=== PATIENT | female | born 1960 | race Caucasian/White ===

== ENCOUNTER → 2017-04-26 | Outpatient (CLI) | payer MEDICAID ==
[~2017-04-26] MED LIST: BISOPROLOL FUM2.5 MG PO; CELEXA10 M1 PO; HYDROCHLOROTHIA25 M2 PO; LAMICTAL100 MG PO; LEVOTHYROXIN0.075 MG PO; LOTENSIN40 MG PO; METFORMIN HCL500 MG PO; NOVOLIN 70100 UNIT/1 SUBQ; PROPRANOLOL 4040 M1 PO; PROTONIX 20 MG20 MG PO
== END ==
LOC: M.RAD 16:13
DX: M16.11 Unilateral primary osteoarthritis, right hip (principal); M47.896 Other spondylosis, lumbar region; M19.90 Unspecified osteoarthritis, unspecified site

== ENCOUNTER → 2017-05-22 | Outpatient (CLI) | payer MEDICAID | LOC: M.MRI 05-16 15:43 | DX: M51.27 Other intervertebral disc displacement, lumbosacral region (principal); M47.896 Other spondylosis, lumbar region; M50.222 Other cervical disc displacement at C5-C6 level; M50.223 Other cervical disc displacement at C6-C7 level; M51.24 Other intervertebral disc displacement, thoracic region; M48.02 Spinal stenosis, cervical region; M47.892 Other spondylosis, cervical region; M79.602 Pain in left arm; M79.601 Pain in right arm; M79.604 Pain in right leg; M79.605 Pain in left leg; M51.37 Other intervertebral disc degeneration, lumbosacral region; M76.9 Unspecified enthesopathy, lower limb, excluding foot; M70.61 Trochanteric bursitis, right hip; M19.90 Unspecified osteoarthritis, unspecified site ==

== ENCOUNTER → 2017-08-29 | Outpatient (CLI) | payer MEDICAID ==
--- NOTE | 2017-08-31 12:04 | PF ---
[address] [address] PULMONARY FUNCTION REPORT Name: SENMONSE J Room: [facility]#: [id number] Admission: 08/29/17 Attend Phys: Reza Zimmer MD Discharge: Date of : 56 Report #: [id number] THIS REPORT FOR: //name// CC: Reza Zimmer DATE OF SERVICE: 08/29/2017 REQUESTING PHYSICIAN: Dr. Zimmer. Spirometry reveals a normal FEV1 at 2.25, which was 83% of predicted. FVC 2.75 with an FEV1/FVC ratio of 82%. Mid flows were mildly decreased to 79% of predicted. After inhaled bronchodilator, there was 30% improvement in the mid flows. Lung volumes by plethysmography reveal a TLC of 4.21, which was 83% of predicted. Diffusion capacity was severely decreased. IMPRESSION: Study reveals evidence of a minimal obstructive process. There is improvement seen at the level of the small airways after inhaled bronchodilator. <ELECTRONICALLY SIGNED> By: Linn Levine MD 08/31/17 1204 [id number] Levine MD /nt
== END ==
LOC: M.PUL 11:00
DX: J44.9 Chronic obstructive pulmonary disease, unspecified (principal); I10 Essential (primary) hypertension; E11.9 Type 2 diabetes mellitus without complications; K21.0 Gastro-esophageal reflux disease with esophagitis; Z79.4 Long term (current) use of insulin

== ENCOUNTER → 2017-09-11 | Outpatient (CLI) | payer MEDICAID | LOC: M.RAD 15:46 | DX: M19.071 Primary osteoarthritis, right ankle and foot (principal); M77.31 Calcaneal spur, right foot ==

== ENCOUNTER → 2017-10-23 | Outpatient (CLI) | payer MEDICAID | LOC: M.RAD 13:45 | DX: R06.00 Dyspnea, unspecified (principal); R06.02 Shortness of breath; I10 Essential (primary) hypertension; E78.5 Hyperlipidemia, unspecified; E11.9 Type 2 diabetes mellitus without complications; E66.01 Morbid (severe) obesity due to excess calories ==

== ENCOUNTER → 2017-10-24 | Outpatient (CLI) | payer MEDICAID ==
--- NOTE | 2017-11-03 11:57 | SLEEP ---
[address] [address] SLEEP STUDY REPORT Name: SENMONSE Josemanuel Room: [facility]#: [id number] Admission: 10/24/17 Attend Phys: Reza Zimmer MD Discharge: Date of : 56 Report #: [id number] THIS REPORT FOR: //name// CC: Reza Zimmer This study has been reviewed in its entirety by a board certified sleep specialist TYPE OF STUDY: Split night sleep study, polysomnography and PAP titration. REFERRING PHYSICIAN: Reza Zimmer MD. INDICATION: Known obstructive sleep apnea with CPAP intolerance. History of snoring and unrefreshing sleep. METHODS: The following parameters were monitored: Frontal, central and occipital EEG; electro-oculogram; submentalis EMG; nasal and oral airflow; anterior tibialis EMG; body position and electrocardiogram. Thoracic and abdominal movements were recorded by inductance plethysmography. Oxygen saturation was monitored using pulse oximeter. The tracing was scored using 30-second epochs. Hypopneas were scored per the [employer] [employer] definition using the 4% desaturation criteria. This was split night study. DIAGNOSTIC PORTION: During the diagnostic portion of the study, total sleep time was 50.4 minutes. The sleep latency was 0.6 minutes indicating hypersomnia. Sleep efficiency was 75.1%. SLEEP STAGING: During the diagnostic portion of the study, stage N1 5.8% of total sleep time, stage N2 was 64.8% of total sleep time, stage N3 of 7.9% of total sleep time, stage REM 21.5%, total sleep time. During the diagnostic portion of the study, the patient slept in supine position. During the diagnostic portion of the study, the patient had 1 central apnea, 22 obstructive apneas and 113 hypopneas with overall apnea-hypopnea index of 161.9 per hour. Snoring was recorded during the diagnostic portion of the study, the average O2 saturation was 89%. The lowest O2 saturation recorded was 66%. The average heart rate during the diagnostic portion of the study was 79.8. No arrhythmias were reported and limb movement index was 2.4. Titration portion of the study. The patient is known to have CPAP tolerance in the past[place] [address] SLEEP STUDY REPORT Name: MONSE CHATTERJEE Room: [facility]#: [id number] Admission: 10/24/17 Attend Phys: Reza Zimmer MD Discharge: Date of : 56 Report #: [id number] using BiPAP, starting at level of 10/4 cm of water that was slowly titrated up to a level of 21/15 cm of water. At the level of 21/15 cm of water or BiPAP, the patient slept for 42 minutes, 19.5 minutes of those were on the lateral REM sleep. The apnea-hypopnea index at this level was 1.4 and the lowest O2 saturation recorded was 91% with average O2 saturation was 93%. IMPRESSION: 1. Severe obstructive sleep apnea with apnea-hypopnea index of 161.9 per hour and oxygen desaturation to a chris of 66%. 2. Known CPAP intolerance. RECOMMENDATIONS: 1. Recommend a trial of BiPAP therapy using a pressure of 21/15 cm of water with a close clinical followup and data download. 2. Recommend maintaining ideal body weight. 3. Recommend avoiding alcohol, sedatives, hypnotics close to bedtime. 4. Recommend avoiding driving or operating machinery while drowsy. <ELECTRONICALLY SIGNED> By: Mario Powell MD 11/03/17 1157 [id number] [id number] Mclaughlin MD /nt
== END ==
LOC: M.SLEEPLAB 19:42
DX: G47.33 Obstructive sleep apnea (adult) (pediatric) (principal)